=== PATIENT | male | born 1945 | race Caucasian/White ===

== ENCOUNTER 2022-02-07 23:07 | Inpatient (IN) | payer MEDICARE, BC ==
[2022-02-07] MEDS ORDERED: Enoxaparin Sodium 100 MG/ML SYRINGE ONE (23:49)
[2022-02-08] MEDS ORDERED: Ondansetron ODT 4 MG TAB SL PRN (01:00)
[2022-02-08] MEDS ORDERED: Ondansetron PF 4 MG/2 ML Vial IVP PRN ×2 (01:00→01:16)
[2022-02-08] MEDS ORDERED: Acetaminophen 325 MG TAB PO PRN (01:00)
[2022-02-08] MEDS ORDERED: Ondansetron ODT 4 MG TAB PO PRN (01:16)
[2022-02-08] MEDS ORDERED: Morphine 2 MG/ML VIAL SLOW IVP PRN (01:16)
[2022-02-08] MEDS ORDERED: Nitroglycerin 0.4 MG TAB (25 Tab Bottle) SL PRN (01:16)
[2022-02-08] MEDS ORDERED: Furosemide 20 MG/2 ML VIAL SLOW IVP SCH (02:15)
[2022-02-08] MEDS ORDERED: Dextrose 50% Abboject 50 ML SYRINGE SLOW IVP PRN (02:28)
[2022-02-08] MEDS ORDERED: HumaLOG 300 UNITS/3 ML VIAL SC PRN ×2 (02:28)
[2022-02-08] MEDS ORDERED: Dextrose 5% in Water 1,000 ML IV PRN (02:28)
[2022-02-08 02:58] LABS: #Basophils 0.1 thou/uL (0.0-0.2); #Monocytes 1.1 thou/uL (0.11-0.59); %Basophils 0.6 % (0.0-1.0); %Eosinophils 0.3 % (0.0-10.0); %Lymphocytes 5.7 % (21.0-51.0); %Monocytes 6.4 % (0.0-10.0); Hemoglobin 18.9 g/dL (14.0-18.0); Mean Corpuscular HGB CONC 33.8 g/dL (32.0-36.0); Mean Corpuscular Hemoglobin 32.4 pg (27.0-31.0); Mean Corpuscular Volume 95.9 fL (78.0-98.0); Mean Platelet Volume 6.9 fL (7.4-10.4); Platelet Count 133 thou/uL (130-400); RBC Distribution Width 12.8 % (11.5-14.5); Red Blood Cell (RBC) Count 5.83 mill/uL (4.70-6.10); White Blood Cell (WBC) Count 17.3 thou/uL (4.8-10.8)
[2022-02-08 03:32] LABS: Hemoglobin A1c 6.1 % (4.0-6.0)
[2022-02-08 03:36] LABS: ALT (SGPT) 110 U/L (8-55); AST (SGOT) 542 U/L (5-34); Albumin 3.8 g/dL (3.4-4.8); Alkaline Phosphatase 67 U/L (40-110); Anion Gap 19 mmol/L (10-20); BUN (Urea Nitrogen) 29 mg/dL (8.4-25.7); Bilirubin, Total 0.7 mg/dL (0.2-1.2); Calc. Creatinine Clearance 56 mL/min (70-130); Carbon Dioxide 17 mmol/L (23-31); Chloride 108 mmol/L (98-107); Globulin 3.3 g/dL (2.4-3.5); Glucose 175 mg/dL (83-110); Magnesium 1.9 mg/dL (1.6-2.6); Protein, Total 7.1 g/dL (5.8-8.1); Sodium 140 mmol/L (136-145)
[2022-02-08 03:44] LABS: Troponin I 94.646 ng/mL (< 0.028)
[2022-02-08] MEDS ORDERED: Digoxin 0.5 MG/2 ML AMP SLOW IVP SCH (04:00)
[2022-02-08] MEDS: Nitroglycerin 2% Ointment 1 INCH/1 GM Packet TOP SCH ×2 (05:08→14:31)
[2022-02-08] MEDS: Furosemide 20 MG/2 ML VIAL SLOW IVP SCH ×2 (05:08→14:31)
[2022-02-08 06:41] LABS: SARS-CoV-2 NAA Rapid Test Not Detected (NotDetected)
[2022-02-08] MEDS ORDERED: Lidocaine 1% (PF) 30 ML VIAL ONE (06:44)
[2022-02-08 07:02] LABS: Troponin I 203.048 ng/mL (< 0.028)
[2022-02-08] MEDS ORDERED: Midazolam HCl 2 mg/2 ml Vial ONE (07:22)
[2022-02-08] MEDS ORDERED: Fentanyl 100 MCG/2 ML VIAL ONE (07:22)
[2022-02-08] MEDS ORDERED: Furosemide 40 MG/4 ML VIAL ONE (07:28)
[2022-02-08] MEDS ORDERED: Nitroglycerin 50 MG/250 ML BOT 250 ML ONE (07:28)
[2022-02-08] MEDS ORDERED: Heparin 25,000 units/D5W 500 ML ONE (07:41)
[2022-02-08] MEDS ORDERED: Heparin 10,000 UNITS/ 10 ML VIAL ONE (08:13)
[2022-02-08] MEDS ORDERED: Sodium Chloride 0.9% 1,000 ML IV SCH ×2 (08:30→17:00)
[2022-02-08] MEDS ORDERED: Electrolyte Replacement Protocol FS SCH (08:30)
[2022-02-08] MEDS ORDERED: Iopamidol 370 76% 100 ML VIAL ONE (08:51)
[2022-02-08] MEDS ORDERED: Magnesium 2 GM/50 ML(in water) 2 GM in Premix Bag 1 BAG IVPB SCH (09:00)
[2022-02-08] MEDS ORDERED: Aspirin Chewable 81 MG TAB PO SCH (09:00)
[2022-02-08] MEDS: Aspirin 325 mg Enteric Coated Tablet PO SCH (09:56)
[2022-02-08] MEDS: Metoprolol Tartrate 25 MG TAB PO SCH ×2 (09:56→21:23)
[2022-02-08] MEDS ORDERED: Nitroglycerin 50 MG/250 ML BOT 250 ML IVPB SCH (11:00)
[2022-02-08] MEDS: Famotidine 40 MG/4 ML VIAL SLOW IVP SCH (11:13)
[2022-02-08] MEDS: Lorazepam 2 MG/ML VIAL SLOW IVP PRN (12:23)
[2022-02-08 13:15] LABS: Clarity Cloudy (Clear)
[2022-02-08 13:19] LABS: Bilirubin Unable to Interpret (Negative); Blood, Urine Unable to Interpret (Negative); Glucose, Urine (Dipstick) Unable to Interpret mg/dL (Negative); Ketone, Urine Unable to Interpret mg/dL (Negative); Leukocyte Unable to Interpret Leu/uL (Negative); Nitrite Unable to Interpret (Negative); Protein, Urine (Dipstick) Unable to Interpret mg/dL (Neg-Trace); Specific Gravity, Urine 1.033 (1.002-1.036); Urobilinogen UNABLE TO INTERPRET mg/dL (Less than 2); pH, Urine 5.7 (5.0-9.0)
[2022-02-08 13:20] LABS: Bacteria/HPF 2+ HPF (None Seen); RBC/HPF Greater than 50 HPF (0-3); Squamous Epithelial 0-3 HPF (0-3); WBC/HPF None Seen HPF (0-3)
[2022-02-08] MEDS ORDERED: Heparin 25,000 units/D5W 500 ML IV SCH (14:30)
[2022-02-08] MEDS: Atorvastatin Calcium 40 MG TAB PO SCH (21:23)
[2022-02-09] MEDS: Nitroglycerin 2% Ointment 1 INCH/1 GM Packet TOP SCH ×4 (00:21→23:05)
[2022-02-09] MEDS: Furosemide 20 MG/2 ML VIAL SLOW IVP SCH (05:34)
[2022-02-09] MEDS ORDERED: Furosemide 40 MG/4 ML VIAL ONE (06:50)
[2022-02-09] MEDS ORDERED: Furosemide 20 MG/2 ML VIAL SLOW IVP SCH (07:00)
[2022-02-09] MEDS ORDERED: Diltiazem 125 MG in Sodium Chloride 0.9% 100 ML IVPB SCH (07:00)
[2022-02-09 07:40] LABS: #Basophils 0.1 thou/uL (0.0-0.2); #Eosinphils 0.1 thou/uL (0.0-0.7); #Lymphocytes 2.2 thou/uL (1.20-3.40); #Monocytes 1.1 thou/uL (0.11-0.59); #Neutrophils 10.3 thou/uL (1.40-6.50); %Basophils 0.4 % (0.0-1.0); %Eosinophils 0.5 % (0.0-10.0); %Lymphocytes 16.2 % (21.0-51.0); %Monocytes 7.9 % (0.0-10.0); Albumin 3.5 g/dL (3.4-4.8); Hemoglobin 15.9 g/dL (14.0-18.0); Mean Corpuscular HGB CONC 32.8 g/dL (32.0-36.0); Mean Corpuscular Hemoglobin 31.3 pg (27.0-31.0); Mean Corpuscular Volume 95.3 fL (78.0-98.0); Mean Platelet Volume 6.5 fL (7.4-10.4); Platelet Count 120 thou/uL (130-400); RBC Distribution Width 13.1 % (11.5-14.5); Red Blood Cell (RBC) Count 5.07 mill/uL (4.70-6.10); White Blood Cell (WBC) Count 13.8 thou/uL (4.8-10.8)
[2022-02-09 07:42] LABS: Chloride 103 mmol/L (98-107); Potassium 3.5 mmol/L (3.5-5.1); Sodium 137 mmol/L (136-145)
[2022-02-09 07:43] VITALS: BMI 29.5
[2022-02-09 07:43] LABS: Globulin 3.1 g/dL (2.4-3.5); Glucose 149 mg/dL (83-110); Protein, Total 6.6 g/dL (5.8-8.1); Triglycerides 102 mg/dL (Less than 150)
[2022-02-09 07:44] LABS: Anion Gap 14 mmol/L (10-20); Carbon Dioxide 24 mmol/L (23-31)
[2022-02-09 07:45] LABS: Bilirubin, Total 3.2 mg/dL (0.2-1.2)
[2022-02-09 07:46] LABS: Alkaline Phosphatase 48 U/L (40-110); Calc. Creatinine Clearance 77 mL/min (70-130)
[2022-02-09 07:47] LABS: BUN (Urea Nitrogen) 28 mg/dL (8.4-25.7)
[2022-02-09 07:48] LABS: AST (SGOT) 315 U/L (5-34); Cardiac Risk 2.9 (Less than 4.5); Cholesterol 140 mg/dl (< 200 Desired); HDL Cholesterol 48 mg/dL (>60 Neg Risk); LDL Cholesterol, Calculated 72 mg/dL
[2022-02-09 07:49] LABS: ALT (SGPT) 83 U/L (8-55)
[2022-02-09] MEDS ORDERED: Amiodarone 150 MG, Admixture Fee 1 EACH in Dextrose 5% in Water 100 ML IVPB SCH (08:15)
[2022-02-09] MEDS: Amiodarone 450 MG, Admixture Fee 1 EACH in Dextrose 5% in Water 250 ML IVPB SCH ×2 (08:26→15:47)
[2022-02-09] MEDS: Potassium Chloride 20 MEQ in Premix Bag 1 BAG IVPB SCH ×2 (08:31→11:21)
[2022-02-09] MEDS: Metoprolol Tartrate 25 MG TAB PO SCH ×2 (08:47→20:19)
[2022-02-09] MEDS ORDERED: Digoxin 0.5 MG/2 ML AMP SLOW IVP SCH (09:00)
[2022-02-09] MEDS: Aspirin 325 mg Enteric Coated Tablet PO SCH (09:19)
[2022-02-09] MEDS: Acetaminophen 500 MG TAB PO PRN ×2 (09:48→16:21)
[2022-02-09] MEDS: Famotidine 40 MG/4 ML VIAL SLOW IVP SCH (09:52)
[2022-02-09] MEDS: Lorazepam 2 MG/ML VIAL SLOW IVP PRN ×2 (10:43→20:19)
[2022-02-09] MEDS: Furosemide 40 MG/4 ML VIAL SLOW IVP SCH (13:05)
[2022-02-09] MEDS: Digoxin 0.5 MG/2 ML AMP SLOW IVP SCH ×2 (15:47→20:33)
[2022-02-09] MEDS ORDERED: Lactated Ringer's 250 ML IV SCH (16:30)
[2022-02-09] MEDS: Atorvastatin Calcium 40 MG TAB PO SCH (20:19)
[2022-02-09] MEDS: Famotidine 20 MG TAB PER TUBE SCH (20:33)
[2022-02-09] MEDS ORDERED: Heparin 1,000 UNITS/ML VIAL SLOW IVP SCH ×2 (20:45→23:30)
[2022-02-10 02:31] LABS: Anion Gap 14 mmol/L (10-20); BUN (Urea Nitrogen) 22 mg/dL (8.4-25.7); Calc. Creatinine Clearance 96 mL/min (70-130); Calcium 8.3 mg/dL (7.8-10.44); Carbon Dioxide 20 mmol/L (23-31); Chloride 105 mmol/L (98-107); Glucose 131 mg/dL (83-110); Potassium 3.7 mmol/L (3.5-5.1); Sodium 135 mmol/L (136-145)
[2022-02-10] MEDS: Lorazepam 2 MG/ML VIAL SLOW IVP PRN ×2 (03:21→13:08)
[2022-02-10] MEDS: Digoxin 0.5 MG/2 ML AMP SLOW IVP SCH ×2 (03:29→09:10)
[2022-02-10 04:47] LABS: Band 1 % (5-11); Eosinophils 2 % (0-10); Hemoglobin 14.2 g/dL (14.0-18.0); Lymphocytes 14 % (21-51); MDiff Complete? YES; Mean Corpuscular HGB CONC 33.8 g/dL (32.0-36.0); Mean Corpuscular Hemoglobin 32.4 pg (27.0-31.0); Mean Corpuscular Volume 95.8 fL (78.0-98.0); Mean Platelet Volume 6.9 fL (7.4-10.4); Monocytes 5 % (0-10); Neutrophil 73 % (42-75); Platelet Count 81 thou/uL (130-400); Platelet Morphology Comment Appears Decreased; RBC Distribution Width 12.8 % (11.5-14.5); RBC Morphology Normal; Reactive Lymphocytes 2 % (0-10); White Blood Cell (WBC) Count 11.5 thou/uL (4.8-10.8)
[2022-02-10] MEDS: Nitroglycerin 2% Ointment 1 INCH/1 GM Packet TOP SCH (07:17)
[2022-02-10] MEDS: Furosemide 40 MG/4 ML VIAL SLOW IVP SCH (07:18)
[2022-02-10] MEDS: Amiodarone 450 MG, Admixture Fee 1 EACH in Dextrose 5% in Water 250 ML IVPB SCH (08:02)
[2022-02-10] MEDS: Aspirin 325 mg Enteric Coated Tablet PO SCH (09:10)
[2022-02-10] MEDS: Metoprolol Tartrate 25 MG TAB PO SCH (09:10)
[2022-02-10] MEDS: Famotidine 20 MG TAB PER TUBE SCH (10:23)
[2022-02-10 10:57] LABS: Magnesium 1.9 mg/dL (1.6-2.6)
[2022-02-10] MEDS ORDERED: Heparin 1,000 UNITS/ML VIAL SLOW IVP SCH (11:15)
[2022-02-10 12:41] LABS: #Eosinphils 0.2 thou/uL (0.0-0.7); #Lymphocytes 1.7 thou/uL (1.20-3.40); #Monocytes 0.9 thou/uL (0.11-0.59); #Neutrophils 8.1 thou/uL (1.40-6.50); %Basophils 0.3 % (0.0-1.0); %Lymphocytes 15.2 % (21.0-51.0); %Monocytes 8.5 % (0.0-10.0); %Neutrophils 74.1 % (42.0-75.0); Hemoglobin 12.7 g/dL (14.0-18.0); Mean Corpuscular HGB CONC 32.6 g/dL (32.0-36.0); Mean Corpuscular Hemoglobin 31.4 pg (27.0-31.0); Mean Corpuscular Volume 96.2 fL (78.0-98.0); Platelet Count 99 thou/uL (130-400); RBC Distribution Width 12.8 % (11.5-14.5); Red Blood Cell (RBC) Count 4.04 mill/uL (4.70-6.10)
[2022-02-10] MEDS ORDERED: Magnesium 2 GM/50 ML(in water) 2 GM in Premix Bag 1 BAG IVPB SCH (13:00)
[2022-02-10 13:02] VITALS: BP 117/65
[2022-02-10 13:27] VITALS: TEMP 97.8
[2022-02-13 14:36] LABS: Heparin-Induced Ab (HITA) 0.133 OD (0.000-0.400)
== END 2022-02-10 14:04 | disposition short-term general hospital (02) | DRG 215 ==
LOC: ERS 23:07 → CCU 23:51
PROVIDERS: ADMIT Family Medicine; ATTEND Internal Medicine
PROC: 02HA3RZ Insertion of Short-term External Heart Assist System into Heart, Percutaneous Approach (ICD-10-PCS; principal; 2022-02-08)
PROC: 5A0221D Assistance with Cardiac Output using Impeller Pump, Continuous (ICD-10-PCS; 2022-02-08)
PROC: 4A023N7 Measurement of Cardiac Sampling and Pressure, Left Heart, Percutaneous Approach (ICD-10-PCS; 2022-02-08)
PROC: B2111ZZ Fluoroscopy of Multiple Coronary Arteries using Low Osmolar Contrast (ICD-10-PCS; 2022-02-08)
PROC: B2151ZZ Fluoroscopy of Left Heart using Low Osmolar Contrast (ICD-10-PCS; 2022-02-08)
DX: I21.4 Non-ST elevation (NSTEMI) myocardial infarction (principal); R57.0 Cardiogenic shock; I50.23 Acute on chronic systolic (congestive) heart failure; I13.0 Hypertensive heart and chronic kidney disease with heart failure and stage 1 through stage 4 chronic kidney disease, or unspecified chronic kidney disease; E87.1 Hypo-osmolality and hyponatremia; N18.30 Chronic kidney disease, stage 3 unspecified; E11.22 Type 2 diabetes mellitus with diabetic chronic kidney disease; E11.65 Type 2 diabetes mellitus with hyperglycemia; Z20.822 Contact with and (suspected) exposure to COVID-19; K76.1 Chronic passive congestion of liver; I25.110 Atherosclerotic heart disease of native coronary artery with unstable angina pectoris; I08.1 Rheumatic disorders of both mitral and tricuspid valves; I25.5 Ischemic cardiomyopathy; I48.91 Unspecified atrial fibrillation; E83.42 Hypomagnesemia; R31.9 Hematuria, unspecified; D69.6 Thrombocytopenia, unspecified; E87.6 Hypokalemia; Z85.828 Personal history of other malignant neoplasm of skin
CPT/HCPCS: 33990; 36415; 36416; 71045; 80048; 80053; 80061; 81001; 83036; 83615; 83735; 84443; 84484; 85025; 85347; 93005; 93010; 93306; 93458; 94760; 99152; 99153; J0282; J1160; J1644; J1650; J1815; J1940; J2001; J2060; J2250; J3010; J3475; J3480; J7050; J7070; J7120; Q9967

== ENCOUNTER 2022-03-31 18:21 | Inpatient (IN) | payer MEDICARE, BC ==
[2022-03-31 19:38] LABS: #Eosinphils 0.1 thou/uL (0.0-0.7); #Lymphocytes 1.9 thou/uL (1.20-3.40); #Monocytes 1.1 thou/uL (0.11-0.59); #Neutrophils 7.8 thou/uL (1.40-6.50); %Basophils 0.2 % (0.0-1.0); %Lymphocytes 17.4 % (21.0-51.0); %Monocytes 9.7 % (0.0-10.0); %Neutrophils 71.7 % (42.0-75.0); Hemoglobin 16.1 g/dL (14.0-18.0); Mean Corpuscular HGB CONC 32.4 g/dL (32.0-36.0); Mean Corpuscular Hemoglobin 29.2 pg (27.0-31.0); Mean Corpuscular Volume 90.2 fL (78.0-98.0); Mean Platelet Volume 6.8 fL (7.4-10.4); Platelet Count 255 thou/uL (130-400); RBC Distribution Width 14.8 % (11.5-14.5); Red Blood Cell (RBC) Count 5.51 mill/uL (4.70-6.10); White Blood Cell (WBC) Count 10.8 thou/uL (4.8-10.8)
[2022-03-31 19:46] LABS: ALT (SGPT) 66 U/L (8-55); AST (SGOT) 43 U/L (5-34); Alkaline Phosphatase 91 U/L (40-110); Anion Gap 21 mmol/L (10-20); BUN (Urea Nitrogen) 76 mg/dL (8.4-25.7); Bilirubin, Total 1.1 mg/dL (0.2-1.2); Calc. Creatinine Clearance 0 mL/min (70-130); Calcium 10.1 mg/dL (7.8-10.44); Carbon Dioxide 33 mmol/L (23-31); Chloride 83 mmol/L (98-107); Estimated GFR 40; Globulin 4.3 g/dL (2.4-3.5); Glucose 149 mg/dL (83-110); Protein, Total 8.3 g/dL (5.8-8.1); Sodium 134 mmol/L (136-145)
[2022-03-31 19:50] LABS: Potassium 2.9 mmol/L (3.5-5.1)
[2022-03-31] MEDS ORDERED: Potassium Chloride 20 MEQ/100 ML PREMIX BAG ONE ×2 (21:33→22:28)
[2022-03-31] MEDS ORDERED: Metoprolol Tartrate 25 MG TAB PO SCH (21:55)
[2022-03-31] MEDS ORDERED: Guaifenesin DM 100-10/5 ML UDCUP PO PRN (21:56)
[2022-03-31] MEDS ORDERED: Ondansetron ODT 4 MG TAB PO PRN (21:56)
[2022-03-31] MEDS ORDERED: Ondansetron PF 4 MG/2 ML Vial IVP PRN (21:56)
[2022-03-31] MEDS ORDERED: Acetaminophen 325 MG TAB PO PRN (21:56)
[2022-03-31] MEDS ORDERED: Potassium Chloride 20 MEQ TAB PO SCH (22:00)
[2022-03-31] MEDS ORDERED: Magnesium 2 GM/50 ML(in water) 2 GM in Premix Bag 1 BAG IVPB SCH (22:15)
[2022-03-31] MEDS ORDERED: Atorvastatin Calcium 40 MG TAB PO SCH (22:15)
[2022-03-31 23:11] LABS: Troponin I 0.183 ng/mL (< 0.028)
[2022-03-31 23:38] VITALS: BMI 22.6
[2022-03-31] MEDS: Lactated Ringer's 1,000 ML IV SCH (23:58)
[2022-04-01 02:21] LABS: #Eosinphils 0.1 thou/uL (0.0-0.7); #Lymphocytes 1.9 thou/uL (1.20-3.40); #Monocytes 1.1 thou/uL (0.11-0.59); #Neutrophils 7.6 thou/uL (1.40-6.50); %Basophils 0.2 % (0.0-1.0); %Eosinophils 0.7 % (0.0-10.0); %Monocytes 10.2 % (0.0-10.0); Hemoglobin 14.6 g/dL (14.0-18.0); Mean Corpuscular HGB CONC 32.9 g/dL (32.0-36.0); Mean Corpuscular Hemoglobin 29.6 pg (27.0-31.0); Mean Platelet Volume 6.7 fL (7.4-10.4); Platelet Count 189 thou/uL (130-400); RBC Distribution Width 14.5 % (11.5-14.5); Red Blood Cell (RBC) Count 4.94 mill/uL (4.70-6.10); White Blood Cell (WBC) Count 10.6 thou/uL (4.8-10.8)
[2022-04-01 02:45] LABS: Anion Gap 21 mmol/L (10-20); BUN (Urea Nitrogen) 73 mg/dL (8.4-25.7); Calc. Creatinine Clearance 39 mL/min (70-130); Calcium 9.3 mg/dL (7.8-10.44); Carbon Dioxide 30 mmol/L (23-31); Chloride 86 mmol/L (98-107); Estimated GFR 45; Glucose 138 mg/dL (83-110); Magnesium 3.5 mg/dL (1.6-2.6); Sodium 134 mmol/L (136-145)
[2022-04-01 02:47] LABS: Potassium 2.9 mmol/L (3.5-5.1)
[2022-04-01 02:49] LABS: Troponin I 0.149 ng/mL (< 0.028)
[2022-04-01 03:56] LABS: Anion Gap 21 mmol/L (10-20); BUN (Urea Nitrogen) 72 mg/dL (8.4-25.7); Calc. Creatinine Clearance 41 mL/min (70-130); Calcium 9.1 mg/dL (7.8-10.44); Carbon Dioxide 31 mmol/L (23-31); Chloride 89 mmol/L (98-107); Estimated GFR 48; Glucose 124 mg/dL (83-110); Potassium 3.6 mmol/L (3.5-5.1); Sodium 137 mmol/L (136-145)
[2022-04-01 07:11] LABS: Troponin I 0.131 ng/mL (< 0.028)
[2022-04-01] MEDS ORDERED: Famotidine 20 MG TAB PO SCH (09:00)
[2022-04-01] MEDS: Metoprolol Tartrate 25 MG TAB PO SCH ×2 (09:55→21:05)
[2022-04-01] MEDS: Aspirin 325 mg Enteric Coated Tablet PO SCH (09:55)
[2022-04-01] MEDS: Heparin 5,000 UNITS/ML VIAL SC SCH ×2 (09:56→21:04)
[2022-04-01 10:43] LABS: Bacteria/HPF None Seen HPF (None Seen); Bilirubin Negative (Negative); Blood, Urine Negative (Negative); Clarity Clear (Clear); Glucose, Urine (Dipstick) Normal (Negative); Ketone, Urine 10 mg/dL (Negative); Leukocyte Negative Leu/uL (Negative); Nitrite Negative (Negative); Protein, Urine (Dipstick) Negative (Neg-Trace); RBC/HPF 0-3 HPF (0-3); Specific Gravity, Urine 1.019 (1.002-1.036); Squamous Epithelial 0-3 HPF (0-3); Urobilinogen Normal mg/dL (Less than 2); WBC/HPF 0-3 HPF (0-3)
[2022-04-01] MEDS: Lactated Ringer's 1,000 ML IV SCH (14:19)
[2022-04-01] MEDS: Atorvastatin Calcium 40 MG TAB PO SCH (21:04)
[2022-04-01] MEDS: Tamsulosin HCl 0.4 MG CAP PO SCH (21:05)
[2022-04-02] MEDS: Lactated Ringer's 1,000 ML IV SCH (03:53)
[2022-04-02 04:48] LABS: #Basophils 0.1 thou/uL (0.0-0.2); #Eosinphils 0.2 thou/uL (0.0-0.7); #Lymphocytes 1.6 thou/uL (1.20-3.40); #Monocytes 0.9 thou/uL (0.11-0.59); #Neutrophils 5.4 thou/uL (1.40-6.50); %Basophils 0.7 % (0.0-1.0); %Lymphocytes 19.8 % (21.0-51.0); %Monocytes 10.4 % (0.0-10.0); %Neutrophils 67.1 % (42.0-75.0); Hemoglobin 13.1 g/dL (14.0-18.0); Mean Corpuscular HGB CONC 31.3 g/dL (32.0-36.0); Mean Corpuscular Hemoglobin 28.5 pg (27.0-31.0); Mean Corpuscular Volume 91.3 fL (78.0-98.0); Mean Platelet Volume 6.8 fL (7.4-10.4); Platelet Count 184 thou/uL (130-400); RBC Distribution Width 14.5 % (11.5-14.5); Red Blood Cell (RBC) Count 4.59 mill/uL (4.70-6.10); White Blood Cell (WBC) Count 8.1 thou/uL (4.8-10.8)
[2022-04-02 05:08] LABS: Anion Gap 14 mmol/L (10-20); BUN (Urea Nitrogen) 41 mg/dL (8.4-25.7); Calc. Creatinine Clearance 61 mL/min (70-130); Calcium 8.8 mg/dL (7.8-10.44); Carbon Dioxide 34 mmol/L (23-31); Chloride 92 mmol/L (98-107); Estimated GFR 78; Glucose 137 mg/dL (83-110); Sodium 137 mmol/L (136-145)
[2022-04-02 05:12] LABS: Potassium 2.6 mmol/L (3.5-5.1)
[2022-04-02] MEDS: Potassium Chloride 20 MEQ TAB PO SCH ×3 (07:30→17:41)
[2022-04-02] MEDS: Metoprolol Tartrate 25 MG TAB PO SCH ×2 (10:15→21:05)
[2022-04-02] MEDS: Aspirin 325 mg Enteric Coated Tablet PO SCH (10:15)
[2022-04-02] MEDS: Apixaban 5 MG TAB PO SCH ×2 (10:16→21:06)
[2022-04-02] MEDS: Amiodarone 200 MG TAB PO SCH (10:16)
[2022-04-02] MEDS: Famotidine 20 MG TAB PO SCH ×2 (10:16→21:06)
[2022-04-02] MEDS: Heparin 5,000 UNITS/ML VIAL SC SCH (10:17)
[2022-04-02] MEDS: Atorvastatin Calcium 40 MG TAB PO SCH (21:05)
[2022-04-02] MEDS: Tamsulosin HCl 0.4 MG CAP PO SCH (21:05)
[2022-04-03] MEDS: Potassium Chloride 20 MEQ TAB PO SCH (00:38)
[2022-04-03 04:41] LABS: #Basophils 0.1 thou/uL (0.0-0.2); #Eosinphils 0.3 thou/uL (0.0-0.7); #Lymphocytes 2.4 thou/uL (1.20-3.40); #Monocytes 0.7 thou/uL (0.11-0.59); #Neutrophils 3.8 thou/uL (1.40-6.50); %Basophils 0.8 % (0.0-1.0); %Eosinophils 4.7 % (0.0-10.0); %Lymphocytes 32.9 % (21.0-51.0); %Monocytes 9.6 % (0.0-10.0); Hemoglobin 12.6 g/dL (14.0-18.0); Mean Corpuscular Volume 93.5 fL (78.0-98.0); Mean Platelet Volume 6.7 fL (7.4-10.4); Platelet Count 170 thou/uL (130-400); RBC Distribution Width 14.4 % (11.5-14.5); Red Blood Cell (RBC) Count 4.36 mill/uL (4.70-6.10); White Blood Cell (WBC) Count 7.3 thou/uL (4.8-10.8)
[2022-04-03 04:50] LABS: Anion Gap 11 mmol/L (10-20); BUN (Urea Nitrogen) 27 mg/dL (8.4-25.7); Calc. Creatinine Clearance 71 mL/min (70-130); Calcium 8.5 mg/dL (7.8-10.44); Carbon Dioxide 33 mmol/L (23-31); Chloride 97 mmol/L (98-107); Estimated GFR 89; Glucose 106 mg/dL (83-110); Potassium 3.6 mmol/L (3.5-5.1); Sodium 137 mmol/L (136-145)
[2022-04-03] MEDS: Metoprolol Tartrate 25 MG TAB PO SCH (08:49)
[2022-04-03] MEDS: Apixaban 5 MG TAB PO SCH (08:50)
[2022-04-03] MEDS: Amiodarone 200 MG TAB PO SCH (08:50)
[2022-04-03] MEDS: Famotidine 20 MG TAB PO SCH (08:50)
[2022-04-03] MEDS ORDERED: Aspirin 81 mg Enteric Coated Tablet PO SCH (09:00)
[2022-04-03 12:05] VITALS: BP 97/53; TEMP 97.3
== END 2022-04-03 14:00 | disposition home or self-care (01) | DRG 683 ==
LOC: ERS 18:21 → 2NO 21:39
PROVIDERS: ADMIT Internal Medicine; ATTEND Internal Medicine
DX: N17.9 Acute kidney failure, unspecified (principal); I50.22 Chronic systolic (congestive) heart failure; E87.1 Hypo-osmolality and hyponatremia; I25.810 Atherosclerosis of coronary artery bypass graft(s) without angina pectoris; Z20.822 Contact with and (suspected) exposure to COVID-19; E86.0 Dehydration; E11.9 Type 2 diabetes mellitus without complications; I11.0 Hypertensive heart disease with heart failure; E87.6 Hypokalemia; I25.5 Ischemic cardiomyopathy; E83.42 Hypomagnesemia; D69.6 Thrombocytopenia, unspecified; E78.5 Hyperlipidemia, unspecified; I08.1 Rheumatic disorders of both mitral and tricuspid valves; I48.0 Paroxysmal atrial fibrillation; Z79.82 Long term (current) use of aspirin; Z79.899 Other long term (current) drug therapy; I25.2 Old myocardial infarction; Z95.1 Presence of aortocoronary bypass graft
CPT/HCPCS: 36415; 76770; 80048; 80053; 81001; 83036; 83735; 84484; 85025; 93005; 93970; 96365; J1644; J3475; J3480; J7120; U0003; U0005